=== PATIENT | female | born 1990 | race Two or more races ===

== ENCOUNTER 2022-07-20 11:00 | Day surgery (SDC) | payer OTHER ==
[~2022-07-20] VITALS: Ht 149.9 cm; Wt 57.2 kg
[~2022-07-20 11:00] MED LIST: LEVOTHYROXINE25 MCG PO; NORVASC2.5 M1 PO; TOPROL XL25 M1 PO
== END 2022-07-20 17:20 | disposition home or self-care (01) ==
LOC: CIR.AMB 11:00
PROVIDERS: ATTEND Obstetrics & Gynecology Maternal & Fetal Medicine
DX: O02.1 Missed abortion (principal); O72.2 Delayed and secondary postpartum hemorrhage; L91.8 Other hypertrophic disorders of the skin; I10 Essential (primary) hypertension; Z88.1 Allergy status to other antibiotic agents; Z86.16 Personal history of COVID-19; Z20.822 Contact with and (suspected) exposure to COVID-19; E03.9 Hypothyroidism, unspecified